=== PATIENT | male | born 1960 | race Caucasian/White ===

== ENCOUNTER 2020-08-19 15:56 | Emergency (ER) | payer OTHER ==
--- NOTE | 2020-08-19 17:25 | EDM.PDOC ---
ED HPI GENERAL MEDICAL PROBLEM - General Chief Complaint: Cardiovascular Problem Stated Complaint: HEART PROBLEMS Time Seen by Provider: 08/19/20 16:10 Source of Information: Reports: Patient, RN Notes Reviewed - History of Present Illness INITIAL COMMENTS - FREE TEXT/NARRATIVE: 59 yr old male has had some palpitations on and off for the past week. He states he doesn't feel quite right. Slight discomfort off and on central chest. No severe ache or heaviness. No abd pain, nausea or vomiting. No cough, fever or difficulty breathing. - Related Data Allergies Allergy/AdvReac Type Severity Reaction Status Date / Time ketoconazole Allergy Cannot Verified 08/19/20 16:08 Remember bee stings Allergy Swelling Uncoded 10/08/16 12:22 Home Meds: Home Meds Levothyroxine 1 tab PO DAILY 10/07/16 [History] Omeprazole 1 cap PO DAILY 10/07/16 [History] Psyllium with Sucrose [Metamucil] 1 dose PO DAILY 10/07/16 [History] Simvastatin 1 tab PO BEDTIME 10/07/16 [History] Aspirin 81 mg PO DAILY 08/19/20 [History] Glucosam/Chondr/Collagn/Hyalur [Glucosamine & Chondroitin Cap] 1 tab PO DAILY 08/19/20 [History] Vitamin B Complex [B Complex] 1 tab PO DAILY 08/19/20 [History] Past Medical History HEENT History: Reports: Impaired Vision Cardiovascular History: Reports: High Cholesterol Respiratory History: Reports: None Gastrointestinal History: Reports: GERD Genitourinary History: Reports: Other (See Below) Other Genitourinary History: erectile dysfunction CHANNEL SPECIALIST History: Reports: None Musculoskeletal History: Reports: None Neurological History: Reports: None Psychiatric History: Reports: None Endocrine/Metabolic History: Reports: Hypothyroidism, Obesity/BMI 30+ Hematologic History: Reports: None Immunologic History: Reports: None Oncologic (Cancer) History: Reports: None Dermatologic History: Reports: Other (See Below) Other Dermatologic History: contact dermatitis - Infectious Disease History Infectious Disease History: Reports: Chicken Pox - Past Surgical History GI Surgical History: Reports: Appendectomy Social & Family History - Family History Family Medical History: No Pertinent Family History - Tobacco Use Tobacco Use Status *Q: Never Tobacco User - Caffeine Use Caffeine Use: Reports: Coffee - Recreational Drug Use Recreational Drug Use: No ED ROS GENERAL - Review of Systems Review Of Systems: See Below Constitutional: Denies: Fever, Chills, Diaphoresis HEENT: Reports: No Symptoms Respiratory: Denies: Shortness of Breath, Pleuritic Chest Pain, Cough Cardiovascular: Reports: Chest Pain (mild), Palpitations GI/Abdominal: Denies: Abdominal Pain, Nausea, Vomiting Musculoskeletal: Denies: Neck Pain, Shoulder Pain, Arm Pain, Back Pain Skin: Reports: No Symptoms Neurological: Reports: No Symptoms ED EXAM, GENERAL - Physical Exam Exam: See Below General Appearance: Alert, No Apparent Distress Head: Atraumatic. No: Facial Swelling Neck: Supple Respiratory/Chest: No Respiratory Distress, Lungs Clear, Normal Breath Sounds, Chest Non-Tender Cardiovascular: Regular Rate, Rhythm GI/Abdominal: Soft, Non-Tender Back Exam: No: CVA Tenderness (L), CVA Tenderness (R) Extremities: Normal Inspection, Normal Range of Motion. No: Pedal Edema, Leg Pain, Increased Warmth, Redness Neurological: Alert, Oriented, No Motor/Sensory Deficits Skin Exam: Warm, Dry, Normal Color, No Rash #1 Interpretation EKG Date: 08/19/20 Rhythm: NSR P-Wave: Present QRS: Other (small q waves lead III.) ST-T: Normal QT: Normal Course - Vital Signs Last Recorded V/S: Last Vital Signs Temp 97.6 F 08/19/20 16:04 Pulse 72 08/19/20 18:47 Resp 16 08/19/20 18:47 BP 145/100 H 08/19/20 18:47 Pulse Ox 98 08/19/20 18:47 - Orders/Labs/Meds Labs: Laboratory Tests 08/19/20 Range/Units 16:58 Sodium 138 (136-145) mEq/L Potassium 4.1 (3.5-5.1) mEq/L Chloride 105 (98-107) mEq/L Carbon Dioxide 30 (21-32) mEq/L Anion Gap 7.1 (5-15) BUN 11 (7-18) mg/dL Creatinine 1.2 (0.7-1.3) mg/dL Est Cr Clr Drug Dosing 74.55 mL/min Estimated GFR (MDRD) > 60 (>60) mL/min BUN/Creatinine Ratio 9.2 L (14-18) Glucose 93 (74-106) mg/dL Calcium 8.9 (8.5-10.1) mg/dL Total Bilirubin 0.3 (0.2-1.0) mg/dL AST 23 (15-37) U/L ALT 39 (16-63) U/L Alkaline Phosphatase 74 (46-116) U/L Troponin I < 0.017 (0.00-0.056) ng/mL Total Protein 6.8 (6.4-8.2) g/dl Albumin 3.6 (3.4-5.0) g/dl Globulin 3.2 gm/dL Albumin/Globulin Ratio 1.1 (1-2) - Re-Assessments/Exams Free Text/Narrative Re-Assessment/Exam: 08/20/20 07:19 EKG did not show acute changes, trop, labs nl, NSR, no ectopy, discharge instr. as documented. Departure - Departure Time of Disposition: 18:33 Disposition: Home, Self-Care 01 Condition: Fair Clinical Impression: Palpitations, Atypical chest pain Instructions: Palpitations, [id number] Referrals: Louise Day PA-C [Primary Care Provider] - Forms: ED Department Discharge Additional Instructions: Check your BP and heart rate once or twice daily as discussed, keep a log of that for your medical provider to review. See your regular medical provider in about 2 weeks for recheck. Avoid excessive caffiene. Return to ED if symptoms worsening in any way, especially if you get symptoms of severe lightheadness or dizziness associated with palpitations. Sepsis Event Note (ED) - Evaluation Sepsis Screening Result: No Definite Risk
[2020-08-19 18:48] VITALS: BP 145/100; PULSE 72
== END 2020-08-19 18:45 | disposition home or self-care (01) ==
LOC: JD.ED 15:56
DX: R00.2 Palpitations (principal); R07.89 Other chest pain; E78.00 Pure hypercholesterolemia, unspecified; K21.9 Gastro-esophageal reflux disease without esophagitis; E03.9 Hypothyroidism, unspecified; E66.9 Obesity, unspecified; Z68.38 Body mass index [BMI] 38.0-38.9, adult; Z88.3 Allergy status to other anti-infective agents; Z91.030 Bee allergy status; Z79.899 Other long term (current) drug therapy; Z79.82 Long term (current) use of aspirin
CPT/HCPCS: 36415; 80053; 84484; 93005; 93010; 99283; 99285-25